=== PATIENT | male | born 1960 | race Caucasian/White ===

== ENCOUNTER 2024-06-22 09:51 | Outpatient (CLI) | payer OTHER | END 2024-06-22 09:52 | disposition home or self-care (01) | LOC: BICRAD 09:51 | PROVIDERS: ATTEND Internal Medicine | DX: Z02.71 Encounter for disability determination (principal); M47.816 Spondylosis without myelopathy or radiculopathy, lumbar region; M41.9 Scoliosis, unspecified | CPT/HCPCS: 72100 ==